=== PATIENT | male | born 1950 | race Caucasian/White ===

== ENCOUNTER 2016-08-02 10:09 | Emergency (ER) | payer BC, MEDICARE | END 2016-08-02 12:15 | disposition home or self-care (01) | LOC: ED 10:09 | DX: S00.93XA Contusion of unspecified part of head, initial encounter (principal); I10 Essential (primary) hypertension; Z88.2 Allergy status to sulfonamides; W22.09XA Striking against other stationary object, initial encounter; Y99.0 Civilian activity done for income or pay ==